=== PATIENT | female | born 2000 | race Caucasian/White ===

== ENCOUNTER 2020-04-16 20:43 | Emergency (ER) | payer OTHER ==
[~2020-04-16] VITALS: Ht 175.3 cm; Wt 70.3 kg
[~2020-04-16 20:43] MED LIST: CRUTCH1 EACH; FAMCICLOVIR500 MG PO; HYCET 7.5 MG-3473 ML PO; IBUPROFEN600 MG PO; NORCO 5-325 TA1 EACH PO; PROVENTIL HFA6.7 GM INH
[2020-04-16] MEDS ORDERED: CIPRODEX OTIC7.5 ML AD (22:11)
[2020-04-16] MEDS ORDERED: CEPHALEXIN500 MG PO (22:11)
== END 2020-04-16 22:43 | disposition home or self-care (01) ==
LOC: ED 20:43
DX: H60.91 Unspecified otitis externa, right ear (principal); J45.909 Unspecified asthma, uncomplicated; Z87.891 Personal history of nicotine dependence
CPT/HCPCS: 99282

== ENCOUNTER 2020-06-20 20:23 | Emergency (ER) | payer OTHER ==
[~2020-06-20] VITALS: Ht 175.3 cm; Wt 77.0 kg
[~2020-06-20 20:23] MED LIST changes: +CEPHALEXIN500 MG PO; +CIPRODEX OTIC7.5 ML AD
== END 2020-06-21 00:01 | disposition home or self-care (01) ==
LOC: ED 20:23
DX: O20.0 Threatened abortion (principal); Z3A.01 Less than 8 weeks gestation of pregnancy; O99.511 Diseases of the respiratory system complicating pregnancy, first trimester; J45.909 Unspecified asthma, uncomplicated; Z87.891 Personal history of nicotine dependence
CPT/HCPCS: 76801; 76817; 80053; 84702; 85025; 99284-25